=== PATIENT | female | born 1930 | race Caucasian/White ===

== ENCOUNTER 2017-12-10 16:25 | Emergency (ER) | payer MEDICARE ==
[~2017-12-10] VITALS: Ht 170.2 cm; Wt 71.7 kg
[~2017-12-10 16:25] MED LIST: AMLODIPINE BESYL5 MG PO; CLINDAMYCIN HC150 MG PO; INVOKANA PO; LANTUS100 UNITS/ SC
[2017-12-10] MEDS ORDERED: SODIUM CHLORIDE 0.9% 500ML 500 ML IV STA (16:35)
[2017-12-10] MEDS ORDERED: INSULIN REGULAR, HUMAN 100 UNIT/1 ML 3ML VIAL IV ONE (16:45)
[2017-12-10 17:44] LABS: BILIRUBIN,URINE NEGATIVE (NEGATIVE); CLARITY,URINE CLEAR (CLEAR); COLOR,URINE YELLOW (YELLOW); KETONES,URINE NEGATIVE (NEGATIVE); LEUKOCYTE ESTERASE ,URINE NEGATIVE (NEGATIVE); NITRITE,URINE NEGATIVE (NEGATIVE); PROTEIN,URINE DIPSTICK NEGATIVE (NEGATIVE); URINE UROBILINOGEN 0.2 mg/dL (0.2 - 1)
--- NOTE | 2017-12-10 17:44 | Diagnostic Imaging Report ---
PROCEDURE: A single AP view of the chest. COMPARISON: Patients [facility], , CHEST 2 VIEWS, 10/10/2009, 11:12. INDICATIONS: WEAKNESS FINDINGS: Lines/tubes: None. Lungs: The lungs are well inflated. Stable 6 mm calcified granuloma in the left upper lobe. There is no evidence of pneumonia or pulmonary edema. Pleura: There is no pleural effusion or pneumothorax. Heart and mediastinum: The heart and the mediastinum are unremarkable. Bones: No acute bony abnormality. IMPRESSION: 1. No acute cardiopulmonary abnormalities. Donte Boo M.D. Dictated by: Donte Boo M.D. on 12/10/2017 at 17:46 Electronically approved by: Donte Boo M.D. on 12/10/2017 at 17:46
[2017-12-10 17:57] LABS: MUCUS,URINE FEW (RARE); RBC,URINE 0-5 /HPF (0-5)
[2017-12-10] MEDS ORDERED: VICTOZA 2-0.6 MG/0.1 SQ (18:00)
[2017-12-10 18:30] LABS: ALANINE AMINOTRANSFERASE 12 IU/L (0-55); ALBUMIN 3.5 g/dL (3.5-5.0); ALBUMIN/GLOBULIN RATIO 0.9 (0.8-2.0); ALKALINE PHOSPHATASE 82 IU/L (40-150); ANION GAP 16.6 mmol/L (8-16); BLOOD UREA NITROGEN 15 mg/dL (7-26); BUN/CREATININE RATIO 16 (6-25); CARBON DIOXIDE 21 mmol/L (22-29); CHLORIDE 101 mmol/L (98-107); CREATINE KINASE 36 IU/L (29-168); CREATININE, SERUM 0.94 mg/dL (0.57-1.11); EST GLOMERULAR FILTRATION RATE 57 ML/MIN (60-); POTASSIUM 4.6 mmol/L (3.5-5.1); SODIUM 134 mmol/L (136-145)
[2017-12-10 18:32] LABS: GLUCOSE 479 mg/dL (74-118)
[2017-12-10 18:33] LABS: BASOPHILS % 0.6 % (0.0-1.0); EOSINOPHILS # (AUTO) 0.2 (0.0-0.4); EOSINOPHILS % 2.8 % (0.0-6.0); HEMATOCRIT 38.1 % (34.2-44.1); LYMPHOCYTES # (AUTO) 2.2 (1.0-3.2); LYMPHOCYTES % 40.1 % (18.0-39.1); MEAN CORPUSCULAR HEMOGLOBIN 30.3 pg (28-32); MEAN CORPUSCULAR HGB CONC 34.1 g/dL (31-35); MEAN CORPUSCULAR VOLUME 88.8 fL (81-99); MONOCYTES # (AUTO) 0.4 (0.2-0.8); MONOCYTES % 7.5 % (4.4-11.3); NEUTROPHILS # (AUTO) 2.6 (2.1-6.9); NEUTROPHILS % 48.8 % (38.7-80.0); PLATELET COUNT 184 x10e3/uL (140-360); RED BLOOD COUNT 4.29 x10e6/uL (3.6-5.1); RED CELL DISTRIBUTION WIDTH 13.2 % (11.7-14.4)
[2017-12-10 19:16] VITALS: BP 131/69
== END 2017-12-10 19:27 | disposition home or self-care (01) ==
LOC: ER 16:25
CPT/HCPCS: 36415; 71045; 80053; 81001; 82550; 82553; 82948; 84484; 85025; 87086; 93005; 99284; J7040

== ENCOUNTER 2018-06-10 12:02 | Emergency (ER) | payer MEDICARE ==
[~2018-06-10] VITALS: Ht 170.2 cm; Wt 71.7 kg
[~2018-06-10 12:02] MED LIST changes: +VICTOZA 2-0.6 MG/0.1 SQ
--- OUTSIDE RECORDS SUMMARY | 2018-06-10 12:05 | XMS REPORT | Continuity of Care Document ---
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 [facility] DM - Diabetes mellitus Active Problem 12/07/2016 [facility] Hiatal hernia Active Problem 12/07/2016 [facility] Cancer of bowel Resolved Problem 03/02/2013 [facility] COLON CANCER Resolved Problem 03/02/2013 [facility] DM - Diabetes mellitus Active Problem 03/02/2013 [facility] Hernia Resolved Problem 03/02/2013 [facility] Hiatal hernia Active Problem 03/02/2013 [facility] DIZZINESS AND GIDDINESS Active [facility] Medications Medication Details Route Status Patient Instructions Ordering Provider Order Date Source Saline Flush 0.9% 10 mL, Route: IVP, Drug Form: INJ, Dosing Weight 81.818, kg, PRN, PRN Line Flush, Start date: 12/04/16 18:23:00 CDT, Duration: 30 day, Stop date: 01/03/17 18:22:00 CDTNotes: (Same as: BD Posiflush) No Longer Active 12/04/2016 [facility] magnesium oxide 200 mg oral tablet 400 mg, 2 tab, PO, Daily, 8 tab, Substitution Allowed, TAB PO Active [facility] 02/28/2013 [facility] magnesium oxide 400 mg, 1 tab, Route: PO, Drug form: TAB, ONCE, Dosing Weight 81.818, kg, Start date: 02/28/13 15:49:00, Stop date: 02/28/13 15:49:00 PO No Longer Active [facility] 02/28/2013 [facility] Levemir FlexPen 100 unit, 1 mL, Route: SUB-Q, Drug form: INJ, Daily, Start date: 02/28/13 13:07:00, Duration: 30 day, Stop date: 03/30/13 9:00:00 SUB-Q No Longer Active [facility] 02/28/2013 [facility] Lantus Route: SUB-Q, Daily, Dosing Weight 81.818, kg, Start date: 02/28/13 12:00:00, Duration: 30 day, Stop date: 03/30/13 9:00:00 SUB-Q No Longer Active [facility] 02/28/2013 [facility] Insulin regular 10 unit, 0.1 mL, Route: IV, Drug form: INJ, ONCE, Dosing Weight 81.818, kg, Start date: 02/28/13 11:57:00, Stop date: 02/28/13 11:57:00 IV No Longer Active [facility] 02/28/2013 [facility] Dextrose 50% in Water IV 50 mL, Route: IVP, Start date: 02/28/13 11:39:00, Duration: 30 day, Stop date: 03/30/13 11:38:00, PRN Blood Glucose Results IVP No Longer Active [facility] 02/28/2013 [facility] NovoLog FlexPen 15 unit, 0.15 mL, Route: SUB-Q, Drug form: SOLN, Sliding Scale, PRN Blood Glucose Results, Start date: 02/28/13 11:39:00, Duration: 30 day, Stop date: 03/30/13 11:38:00 SUB-Q No Longer Active [facility] 02/28/2013 [facility] glucagon 1 mg, Route: IM, Drug form: PDR/INJ, PRN, PRN Blood Glucose Results, Start date: 02/28/13 11:39:00, Duration: 30 day, Stop date: 03/30/13 11:38:00 IM No Longer Active [facility] 02/28/2013 [facility] NovoLog FlexPen 6 unit, 0.06 mL, Route: SUB-Q, Drug form: SOLN, Sliding Scale, PRN Blood Glucose Results, Start date: 02/28/13 11:38:00, Duration: 30 day, Stop date: 03/30/13 11:37:00 SUB-Q No Longer Active [facility] 02/28/2013 [facility] insulin aspart Route: IV, ONCE, Dosing Weight 81.818, kg, Start date: 02/28/13 11:35:00, Stop date: 02/28/13 11:35:00 IV No Longer Active [facility] 02/28/2013 [facility] Cipro 500 mg oral tablet 500 mg, 1 tab, PO, Q12H, 14 tab, Substitution Allowed, TAB PO Active [place] 02/27/2013 [facility] ciprofloxacin 400 mg/200 mL intravenous solution 400 mg, 200 mL, Route: IVPB, Drug form: INJ, [id number], Dosing Weight 81.818, kg, Start date: 02/27/13 15:00:00, Duration: 30 day, Stop date: 03/29/13 3:00:00 IVPB No Longer Active [place] 02/27/2013 [facility] K-Dur 20 40 mEq, 2 tab, Route: PO, Drug form: ERTAB, ONCE, Start date: 02/27/13 11:00:00, Stop date: 02/27/13 11:00:00 PO No Longer Active [facility] 02/27/2013 [facility] glyBURIDE 5 mg, 1 tab, Route: PO, Drug form: TAB, BID, Dosing Weight 81.818, kg, Start date: 02/27/13 9:00:00, Duration: 30 day, Stop date: 03/28/13 17:00:00 PO No Longer Active [place] 02/27/2013 [facility] magnesium sulfate 1 gm, 50 mL, Route: IVPB, Drug form: INJ, ONCE, Dosing Weight 81.818, kg, Start date: 02/27/13 1:21:00, Stop date: 02/27/13 1:21:00 IVPB No Longer Active [place] 02/27/2013 [facility] nitroglycerin 0.4 mg sublingual tablet 0.4 mg, 1 tab, Route: SL, Drug form: TAB, Q5Min, PRN Chest Pain, Start date: 02/27/13 1:06:00, Duration: 30 day, Stop date: 03/29/13 1:05:00 SL No Longer Active [facility] 02/27/2013 [facility] atropine 0.5 mg, 5 mL, Route: IVP, Drug form: INJ, PRN, PRN Bradycardia, Start date: 02/27/13 1:06:00, Duration: 30 day, Stop date: 03/29/13 1:05:00 IVP No Longer Active [facility] 02/27/2013 [facility] insulin aspart 1 unit, 0.01 mL, Route: SUB-Q, Drug form: SOLN, Bedtime, Dosing Weight 81.818, kg, PRN Blood Glucose Results, Start date: 02/27/13 0:56:00, Duration: 30 day, Stop date: 03/29/13 0:55:00 SUB-Q No Longer Active [facility] 02/27/2013 [facility] Dextrose 50% Syringe 25 gm, 50 mL, Route: IVP, Drug Form: INJ, Dosing Weight 81.818, kg, PRN, PRN Blood Glucose Results, Start date: 02/27/13 0:56:00, Duration: 30 day, Stop date: 03/29/13 0:55:00 IVP No Longer Active [facility] 02/27/2013 [facility] glucagon 1 mg, Route: IM, Drug form: PDR/INJ, PRN, Dosing Weight 81.818, kg, PRN Blood Glucose Results, Start date: 02/27/13 0:56:00, Duration: 30 day, Stop date: 03/29/13 0:55:00 IM No Longer Active [facility] 02/27/2013 [facility] docusate 100 mg, 1 cap, Route: PO, Drug form: CAP, BID, Dosing Weight 81.818, kg, PRN Constipation, Start date: 02/27/13 0:55:00, Duration: 30 day, Stop date: 03/29/13 0:54:00 PO No Longer Active [facility] 02/27/2013 [facility] ondansetron 4 mg, 2 mL, Route: IVP, Drug form: INJ, Q8H, Dosing Weight 81.818, kg, PRN Nausea & Vomiting, Start date: 02/27/13 0:55:00, Duration: 30 day, Stop date: 03/29/13 0:54:00 IVP No Longer Active [facility] 02/27/2013 [facility] Saline Flush 0.9% 5 ml, Route: IVP, Drug Form: INJ, Dosing Weight 81.818, kg, PRN, PRN Line Flush, Start date: 02/27/13 0:55:00, Duration: 30 day, Stop date: 03/29/13 0:54:00 IVP No Longer Active [facility] 02/27/2013 [facility] acetaminophen 650 mg, 20.3 mL, Route: PO, Drug form: LIQ, Q4H, Dosing Weight 81.818, kg, PRN Pain 1-3/Temp > 100.4 F, Start date: 02/27/13 0:55:00, Duration: 30 day, Stop date: 03/29/13 0:54:00 PO No Longer Active [facility] 02/27/2013 [facility] Sodium Chloride 0.45% IV 1,000 mL 1,000 mL, Rate: 100 ml/hr, Infuse over: 10 hr, Route: IV, Dosing Weight 81.818 kg, Total Volume: 1,000, Start date: 02/27/13 0:55:00, Duration: 30 day, Stop date: 03/29/13 0:54:00 IV No Longer Active [facility] 02/27/2013 [facility] glyBURIDE 5 mg oral tablet 5 mg, 1 tab, PO, BID, Substitution Allowed PO Active [facility] 02/27/2013 [facility] Lantus 100 units/mL 100 units, SUB-Q, Daily, Substitution Allowed SUB-Q Active 02/27/2013 [facility] Rocephin + Sodium Chloride 0.9% IV 100 mL 1 gm, Route: IV, ONCE, Dosing Weight 81.818, kg, Start date: 02/26/13 22:38:00, Stop date: 02/26/13 22:38:00 IV No Longer Active [facility] 02/27/2013 [facility] Insulin regular 10 unit, Route: SUB-Q, ONCE, Dosing Weight 81.818, kg, Priority: STAT, Start date: 02/26/13 21:38:00, Stop date: 02/26/13 21:38:00 SUB-Q No Longer Active [facility] 02/27/2013 [facility] Sodium Chloride 0.9% (Bolus) IV 500 mL 500 mL, Rate: 500 ml/hr, Infuse over: 1 hr, Route: IV, Dosing Weight 81.818 kg, Total Volume: 500, Priority: STAT, Start date: 02/26/13 19:39:00, Duration: 1 doses or times, Stop date: 02/26/13 20:38:00 IV No Longer Active [facility] 02/27/2013 [facility] Saline Flush 0.9% 5 ml, Route: IVP, Drug Form: INJ, Dosing Weight 81.818, kg, PRN, PRN Line Flush, Start date: 02/26/13 19:39:00, Duration: 30 day, Stop date: 03/28/13 19:38:00 IVP No Longer Active [place] 02/27/2013 [facility] Allergies, Adverse Reactions, Alerts Substance Category Reaction Severity Reaction type Status Date Reported Comments Source codeine drug allergy Allergy Active [facility] Immunizations Immunization Date Given Site Status Last Updated Comments Source Hx pneumococcal vaccine<sup>1</sup> 02/27/2013 completed [facility] Admin Note: [facility] Hx pneumococcal vaccine<sup>1</sup> 02/27/2013 [facility] Results Order Name Results Value Reference Range Date Interpretation Comments Source BEDSIDE GLUCOSE TESTING Comment1 Notify RN/ 02/28/2013 NA [facility] BEDSIDE GLUCOSE TESTING Gluc POC [place] 269 mg/dL 70 - 99 02/28/2013 [facility] 1Interpretive Data: Upper Reportable Limit: 200 mg/dL. [facility] BEDSIDE GLUCOSE TESTING Gluc POC Lif[place]n 262 mg/dL 70 - 99 02/28/2013 [facility] 2Interpretive Data: Upper Reportable Limit: 200 mg/dL. [facility] BEDSIDE GLUCOSE TESTING Comment1 Notify RN/ 02/28/2013 NA [facility] BEDSIDE GLUCOSE TESTING Comment1 Notify RN/ 02/28/2013 NA [facility] BEDSIDE GLUCOSE TESTING Gluc POC [place] 300 mg/dL 70 - 99 02/28/2013 [facility] 3Interpretive Data: Upper Reportable Limit: 200 mg/dL. [facility] CHEMISTRY eGFR 82 mL/min/1.73m2 02/28/2013 NA 4Result Comment: The eGFR is calculated using the CKD-EPI formula. In most young, healthy individuals the eGFR will be >90 mL/min/1.73m2. The eGFR declines with age. An eGFR of 60-89 may be normal in some populations, particularly the elderly, for whom the CKD-EPI formula has not been extensively validated. Use of the eGFR is not recommended in the following populations: Individuals with unstable creatinine concentrations, including patients and those with serious co-morbid conditions. Patients with extremes in muscle mass or diet. The data above are obtained from the National Kidney Disease Education Program (NKDEP) which additionally recommends that when the eGFR is used in patients with extremes of body mass index for purposes of drug dosing, the eGFR should be multiplied by the estimated BMI. [facility] CHEMISTRY Glucose Lvl 284 mg/dL 70 - 99 02/28/2013 [place] 7Interpretive Data: Adult reference range values reflect the clinical guidelines of the [place] [employer]. [facility] CHEMISTRY Creatinine Lvl 0.7 mg/dL 0.5 - 1.4 02/28/2013 Normal [facility] CHEMISTRY CO2 26 meq/L 24 - 32 02/28/2013 Normal [facility] CHEMISTRY Calcium Lvl 8.2 mg/dL 8.5 - 10.5 02/28/2013 LOW [facility] CHEMISTRY BUN 12 mg/dL 7 - 22 02/28/2013 Normal [facility] CHEMISTRY Potassium Lvl 3.8 meq/L 3.5 - 5.1 02/28/2013 Normal [facility] CHEMISTRY Chloride Lvl 107 meq/L 95 - 109 02/28/2013 Normal [facility] CHEMISTRY Sodium Lvl 140 meq/L 135 - 145 02/28/2013 Normal [facility] CHEMISTRY AGAP 10.8 meq/L 10.0 - 20.0 02/28/2013 Normal [facility] CHEMISTRY Magnesium Lvl 1.6 mg/dL 1.8 - 2.4 02/28/2013 LOW [facility] CHEMISTRY Bili Indirect 0.3 mg/dL 0.0 - 1.0 02/28/2013 Normal [facility] CHEMISTRY A/G Ratio 0.8 0.7 - 1.6 02/28/2013 Normal [facility] CHEMISTRY Globulin 3.0 g/dL 2.0 - 4.0 02/28/2013 Normal [facility] CHEMISTRY Bili Total 0.5 mg/dL 0.2 - 1.3 02/28/2013 Normal [facility] CHEMISTRY Total Protein 5.4 g/dL 6.4 - 8.4 02/28/2013 LOW [facility] CHEMISTRY Albumin Lvl 2.4 g/dL 3.5 - 5.0 02/28/2013 LOW [facility] CHEMISTRY Alk Phos 152 unit/L 39 - 136 02/28/2013 HI [facility] CHEMISTRY ALT 127 unit/L 0 - 65 02/28/2013 HI [facility] CHEMISTRY Bili Direct 0.2 mg/dL 0.0 - 0.3 02/28/2013 Normal [facility] CHEMISTRY AST 112 unit/L 0 - 37 02/28/2013 [facility] HEMATOLOGY RDW 13.8 % 11.5 - 14.5 02/28/2013 Normal [facility] HEMATOLOGY MCHC 33.7 g/dL 32.0 - 36.0 02/28/2013 Normal [facility] HEMATOLOGY MPV 9.7 fL 7.4 - 10.4 02/28/2013 [facility] HEMATOLOGY Platelet 86 K/CMM 133 - 450 02/28/2013 [facility] MCH 30.1 pg 27.0 - 31.0 02/28/2013 [facility] HEMATOLOGY MCV 89.1 fL 81.0 - 99.0 02/28/2013 [facility] HEMATOLOGY RBC 4.01 M/CMM 4.20 - 5.40 02/28/2013 [facility] HEMATOLOGY Hct 35.7 % 36.0 - 48.0 02/28/2013 [facility] Hgb 12.1 g/dL 12.0 - 16.0 02/28/2013 [facility] HEMATOLOGY WBC 2.8 K/CMM 3.7 - 10.4 02/28/2013 [facility] Basophils # 0.0 K/CMM 0.0 - 0.2 02/28/2013 [facility] Segs-Bands # 1.0 K/CMM 1.5 - 8.1 02/28/2013 [facility] Lymphocytes # 1.3 K/CMM 1.0 - 5.5 02/28/2013 [facility] Monocytes # 0.4 K/CMM 0.0 - 0.8 02/28/2013 [facility] HEMATOLOGY Eosinophils # 0.1 K/CMM 0.0 - 0.5 02/28/2013 [facility] Monocytes 12.8 % 2.0 - 12.0 02/28/2013 [facility] Eosinophils 3.7 % 0.0 - 4.0 02/28/2013 [facility] HEMATOLOGY Basophils 0.3 % 0.0 - 1.0 02/28/2013 [facility] HEMATOLOGY Segs 37.4 % 45.0 - 75.0 02/28/2013 [facility] Lymphocytes 45.8 % 20.0 - 40.0 02/28/2013 [facility] Abdomen RUQ US Abdomen RUQ US Right upper quadrant abdominal ultrasound: Exam reason: to check liver (elevated enzymes)Abnormal Lab tests- LFT The pancreas head has a normal sonographic appearance; the body and tail are obscured. Diffuse increased echogenicity at the liver is noted compatible with fatty infiltration of the liver; however, cirrhosis or chronic hepatitis could have this appearance. The gallbladder is surgically absent by history.Common duct caliber is 7.6 mm which is normal. No intrahepatic duct dilatation is noted. the right kidney has a normal sonographic appearance. The right kidney measures 12.1 x 4.8 x 4.9 cm. IMPRESSION: 1. Status post cholecystectomy. 2. Diffuse increased echogenicity at the liver is noted compatible with fatty infiltration of the liver; however, cirrhosis or chronic hepatitis could have this appearance. SL:14 02/27/2013 - - Read by: Julián Watts Dictated Date/time: 02/27/13 16:09 Electronically Signed by: Julián Watts MD 02/27/13 16:10 FINAL REPORT [facility] CHEMISTRY Bili Total 0.6 mg/dL 0.2 - 1.3 02/27/2013 Normal [facility] CHEMISTRY AST 148 unit/L 0 - 37 02/27/2013 [facility] CHEMISTRY Albumin Lvl 2.5 g/dL 3.5 - 5.0 02/27/2013 LOW [facility] CHEMISTRY Alk Phos 159 unit/L 39 - 136 02/27/2013 [facility] CHEMISTRY ALT 152 unit/L 0 - 65 02/27/2013 [facility] CHEMISTRY Globulin 3.3 g/dL 2.0 - 4.0 02/27/2013 Normal [facility] CHEMISTRY A/G Ratio 0.8 0.7 - 1.6 02/27/2013 Normal [facility] CHEMISTRY Creatinine Lvl 0.7 mg/dL 0.5 - 1.4 02/27/2013 Normal [facility] CHEMISTRY Total Protein 5.8 g/dL 6.4 - 8.4 02/27/2013 LOW [facility] CHEMISTRY B/C Ratio 29 6 - 25 02/27/2013 [facility] CHEMISTRY CO2 25 meq/L 24 - 32 02/27/2013 Normal [facility] CHEMISTRY Calcium Lvl 8.9 mg/dL 8.5 - 10.5 02/27/2013 Normal [facility] CHEMISTRY AGAP 14.3 meq/L 10.0 - 20.0 02/27/2013 Normal [facility] CHEMISTRY eGFR 82 mL/min/1.73m2 02/27/2013 NA 5Result Comment: The eGFR is calculated using the CKD-EPI formula. In most young, healthy individuals the eGFR will be >90 mL/min/1.73m2. The eGFR declines with age. An eGFR of 60-89 may be normal in some populations, particularly the elderly, for whom the CKD-EPI formula has not been extensively validated. Use of the eGFR is not recommended in the following populations: Individuals with unstable creatinine concentrations, including patients and those with serious co-morbid conditions. Patients with extremes in muscle mass or diet. The data above are obtained from the National Kidney Disease Education Program (NKDEP) which additionally recommends that when the eGFR is used in patients with extremes of body mass index for purposes of drug dosing, the eGFR should be multiplied by the estimated BMI. [facility] CHEMISTRY Glucose Lvl 267 mg/dL 70 - 99 02/27/2013 [place] 8Interpretive Data: Adult reference range values reflect the clinical guidelines of the [place] [employer]. [facility] CHEMISTRY BUN 20 mg/dL 7 - 22 02/27/2013 Normal [facility] CHEMISTRY Chloride Lvl 102 meq/L 95 - 109 02/27/2013 Normal [facility] CHEMISTRY Potassium Lvl 3.3 meq/L 3.5 - 5.1 02/27/2013 LOW [facility] CHEMISTRY Sodium Lvl 138 meq/L 135 - 145 02/27/2013 Normal [facility] HEMATOLOGY Segs 42.8 % 45.0 - 75.0 02/27/2013 [facility] HEMATOLOGY Monocytes 13.4 % 2.0 - 12.0 02/27/2013 [facility] HEMATOLOGY Lymphocytes 41.7 % 20.0 - 40.0 02/27/2013 [facility] HEMATOLOGY Basophils 0.4 % 0.0 - 1.0 02/27/2013 [facility] HEMATOLOGY Eosinophils 1.7 % 0.0 - 4.0 02/27/2013 Normal [facility] HEMATOLOGY Lymphocytes # 1.1 K/CMM 1.0 - 5.5 02/27/2013 Normal [facility] HEMATOLOGY Segs-Bands # 1.2 K/CMM 1.5 - 8.1 02/27/2013 [facility] HEMATOLOGY Monocytes # 0.4 K/CMM 0.0 - 0.8 02/27/2013 Normal [facility] HEMATOLOGY Basophils # 0.0 K/CMM 0.0 - 0.2 02/27/2013 [facility] HEMATOLOGY Eosinophils # 0.0 K/CMM 0.0 - 0.5 02/27/2013 Normal [facility] HEMATOLOGY Platelet 71 K/CMM 133 - 450 02/27/2013 [facility] HEMATOLOGY RDW 13.8 % 11.5 - 14.5 02/27/2013 Normal [facility] HEMATOLOGY MPV 9.6 fL 7.4 - 10.4 02/27/2013 Normal [facility] HEMATOLOGY WBC 2.7 K/CMM 3.7 - 10.4 02/27/2013 LOW [facility] HEMATOLOGY Hgb 12.9 g/dL 12.0 - 16.0 02/27/2013 Normal [facility] HEMATOLOGY RBC 4.29 M/CMM 4.20 - 5.40 02/27/2013 Normal [facility] HEMATOLOGY Hct 38.1 % 36.0 - 48.0 02/27/2013 Normal [facility] HEMATOLOGY MCV 88.8 fL 81.0 - 99.0 02/27/2013 Normal [facility] HEMATOLOGY MCHC 33.8 g/dL 32.0 - 36.0 02/27/2013 Normal [facility] HEMATOLOGY MCH 30.0 pg 27.0 - 31.0 02/27/2013 Normal [facility] Microbiology Culture: Blood 02/27/2013 [facility] Microbiology Culture: Blood 02/27/2013 [facility] CHEMISTRY Lactic Acid Lvl 1.7 mMol/L 0.5 - 2.2 02/27/2013 Normal [facility] CHEMISTRY Magnesium Lvl 1.2 mg/dL 1.8 - 2.4 02/27/2013 LOW [facility] HEMATOLOGY Hgb 13.9 g/dL 12.0 - 16.0 02/27/2013 Normal [facility] HEMATOLOGY Hct 41.7 % 36.0 - 48.0 02/27/2013 Normal [facility] HEMATOLOGY RBC 4.74 M/CMM 4.20 - 5.40 02/27/2013 Normal [facility] HEMATOLOGY RDW 13.9 % 11.5 - 14.5 02/27/2013 Normal [facility] HEMATOLOGY WBC 2.8 K/CMM 3.7 - 10.4 02/27/2013 LOW [facility] HEMATOLOGY MCH 29.4 pg 27.0 - 31.0 02/27/2013 Normal [facility] HEMATOLOGY MCHC 33.5 g/dL 32.0 - 36.0 02/27/2013 Normal [facility] HEMATOLOGY MCV 87.9 fL 81.0 - 99.0 02/27/2013 Normal [facility] HEMATOLOGY MPV 10.1 fL 7.4 - 10.4 02/27/2013 Normal [facility] HEMATOLOGY Platelet 83 K/CMM 133 - 450 02/27/2013 LOW [facility] HEMATOLOGY Lymphocytes # 0.9 K/CMM 1.0 - 5.5 02/27/2013 LOW [facility] HEMATOLOGY Basophils 0.1 % 0.0 - 1.0 02/27/2013 Normal [facility] HEMATOLOGY Segs-Bands # 1.5 K/CMM 1.5 - 8.1 02/27/2013 Normal [facility] HEMATOLOGY Basophils # 0.0 K/CMM 0.0 - 0.2 02/27/2013 Normal [facility] HEMATOLOGY Monocytes 14.4 % 2.0 - 12.0 02/27/2013 [place] [facility] HEMATOLOGY Lymphocytes 32.7 % 20.0 - 40.0 02/27/2013 Normal [facility] HEMATOLOGY Eosinophils 0.4 % 0.0 - 4.0 02/27/2013 Normal [facility] HEMATOLOGY Segs 52.4 % 45.0 - 75.0 02/27/2013 Normal [facility] HEMATOLOGY Eosinophils # 0.0 K/CMM 0.0 - 0.5 02/27/2013 Normal [facility] HEMATOLOGY Monocytes # 0.4 K/CMM 0.0 - 0.8 02/27/2013 Normal [facility] IMMUNOLOGY Hep C Ab Negative *NA* (02/26/2013 20:55:00) Negative 02/27/2013 [facility] IMMUNOLOGY Hep B Core IgM Negative *NA* (02/26/2013 20:55:00) Negative 02/27/2013 [facility] IMMUNOLOGY Hep Bs Ag Negative *NA* (02/26/2013 20:55:00) Negative 02/27/2013 [facility] IMMUNOLOGY Hep A IgM Negative *NA* (02/26/2013 20:55:00) Negative 02/27/2013 [facility] Microbiology Culture: Urine 02/27/2013 [facility] CHEMISTRY CK MB Index null 0.0 - 2.5 02/27/2013 Normal [facility] CHEMISTRY BNP 6 pg/mL <=100 02/27/2013 Normal 11Interpretive Data: Elevated results are in line with increasing severity of congestive heart failure. Minor elevations between 100 and 300 may be seen with Myocardial Ischemia, Sodium retaining drugs, and compensated/treated heart failure. [facility] CHEMISTRY Troponin-I null 0.00 - 0.40 02/27/2013 Normal [facility] CHEMISTRY CK MB null 0.5 - 3.6 02/27/2013 Normal [facility] CHEMISTRY Sodium Lvl 133 meq/L 135 - 145 02/27/2013 LOW [facility] CHEMISTRY Potassium Lvl 3.8 meq/L 3.5 - 5.1 02/27/2013 Normal [facility] CHEMISTRY Chloride Lvl 95 meq/L 95 - 109 02/27/2013 Normal [facility] CHEMISTRY Calcium Lvl 9.4 mg/dL 8.5 - 10.5 02/27/2013 Normal [facility] CHEMISTRY eGFR 60 mL/min/1.73m2 02/27/2013 NA 6Result Comment: The eGFR is calculated using the CKD-EPI formula. In most young, healthy individuals the eGFR will be >90 mL/min/1.73m2. The eGFR declines with age. An eGFR of 60-89 may be normal in some populations, particularly the elderly, for whom the CKD-EPI formula has not been extensively validated. Use of the eGFR is not recommended in the following populations: Individuals with unstable creatinine concentrations, including patients and those with serious co-morbid conditions. Patients with extremes in muscle mass or diet. The data above are obtained from the National Kidney Disease Education Program (NKDEP) which additionally recommends that when the eGFR is used in patients with extremes of body mass index for purposes of drug dosing, the eGFR should be multiplied by the estimated BMI. [facility] CHEMISTRY Albumin Lvl 2.9 g/dL 3.5 - 5.0 02/27/2013 LOW [facility] CHEMISTRY Globulin 3.9 g/dL 2.0 - 4.0 02/27/2013 Normal [facility] CHEMISTRY A/G Ratio 0.7 0.7 - 1.6 02/27/2013 Normal [facility] CHEMISTRY CO2 27 meq/L 24 - 32 02/27/2013 Normal [facility] CHEMISTRY AGAP 14.8 meq/L 10.0 - 20.0 02/27/2013 Normal [facility] CHEMISTRY B/C Ratio 30 6 - 25 02/27/2013 [facility] CHEMISTRY Total Protein 6.8 g/dL 6.4 - 8.4 02/27/2013 Normal [facility] CHEMISTRY Creatinine Lvl 0.9 mg/dL 0.5 - 1.4 02/27/2013 Normal [facility] CHEMISTRY Glucose Lvl 426 mg/dL 70 - 99 02/27/2013 CRIT 10Interpretive Data: Adult reference range values reflect the clinical guidelines of the [place] [employer]. [facility] CHEMISTRY BUN 27 mg/dL 7 - 22 02/27/2013 [facility] CHEMISTRY ALT 191 unit/L 0 - 65 02/27/2013 [facility] CHEMISTRY AST 202 unit/L 0 - 37 02/27/2013 [facility] CHEMISTRY Alk Phos 194 unit/L 39 - 136 02/27/2013 [facility] CHEMISTRY Bili Total 0.7 mg/dL 0.2 - 1.3 02/27/2013 [facility] CHEMISTRY Total CK 270 unit/L 12 - 191 02/27/2013 [facility] URINALYSIS UA Sq Epi Occasional /LPF *NA* (02/26/2013 20:13:00) Few 02/27/2013 NA [facility] URINALYSIS UA WBC 6 /HPF 0 - 5 02/27/2013 [facility] URINALYSIS UA Leuk Est Trace *ABN* (02/26/2013 20:13:00) Negative 02/27/2013 ABN [facility] URINALYSIS UA Bacteria Occasional /HPF *NA* (02/26/2013 20:13:00) None Seen 02/27/2013 [facility] URINALYSIS UA RBC 1 /HPF 0 - 2 02/27/2013 Normal [facility] URINALYSIS UA Mucus Few /LPF *NA* (02/26/2013 20:13:00) None Seen 02/27/2013 NA [facility] URINALYSIS UA Nitrite Negative (02/26/2013 20:13:00) Negative 02/27/2013 [facility] URINALYSIS UA Bili Negative *NA* (02/26/2013 20:13:00) Negative 02/27/2013 [facility] URINALYSIS UA Urobilinogen 2.0 mg/dL 0.1 - 1.0 02/27/2013 [facility] URINALYSIS UA Blood Small *ABN* (02/26/2013 20:13:00) Negative 02/27/2013 [facility] URINALYSIS UA Spec Grav 1.028 <=1.030 02/27/2013 Normal [facility] URINALYSIS UA pH 6.0 5.0 - 8.0 02/27/2013 Normal [facility] URINALYSIS UA Ketones Trace mg/dL *ABN* (02/26/2013 20:13:00) Negative 02/27/2013 [facility] URINALYSIS UA Turbidity Marked *ABN* (02/26/2013 20:13:00) Clear 02/27/2013 [facility] URINALYSIS UA Color Yellow *NA* (02/26/2013 20:13:00) Yellow 02/27/2013 [facility] URINALYSIS UA Glucose 500 mg/dL *ABN* (02/26/2013 20:13:00) Negative 02/27/2013 ABN [facility] URINALYSIS UA Protein Negative mg/dL (02/26/2013 20:13:00) Negative 02/27/2013 Normal [facility] Brain wo contrast CT Brain wo contrast CT CT head without contrast. CLINICAL INDICATION: Behavioral changes. Confusion. COMPARISON: [None]. TECHNIQUE: Multiple contiguous axial images of the brain were performed without IV contrast. FINDINGS: Mild diffuse cerebral and cerebellar atrophy and mild chronic small vessel ischemic change. Ventricles and subarachnoid spaces are appropriate for age. No acute territorial infarction or intracranial hemorrhage. No extra-axial fluid collection. Leach-white distinction is preserved. No mass, mass-effect, or midline shift. Atherosclerotic change of the cavernous segments of the internal carotid and distal vertebral arteries. Visualized paranasal sinuses are unremarkable. IMPRESSION: No acute intracranial process detected. SL: 02/26/2013 - - Read by: Robert Saucedo Dictated Date/time: 02/26/13 20:13 Electronically Signed by: Robert Saucedo MD 02/26/13 20:15 FINAL REPORT [facility] Chest 1view Chest 1view PROCEDURE: Chest 1view REASON FOR EXAM: See Clinic Indication CLINICAL INDICATION: Syncope COMPARISON: None. FINDINGS: No acute process. Mild lingular atelectasis or scarring. Small calcified granulomas present within the left upper lobe. No focal consolidation, pleural effusion, or pneumothorax. Normal cardiac silhouette and mediastinum. Multiple surgical clips are adjacent to the right lumbar spine region. SL: 02/26/2013 - - Read by: Robert Saucedo Dictated Date/time: 02/26/13 20:21 Electronically Signed by: Robert Saucedo MD 02/26/13 20:21 FINAL REPORT [facility] Vital Signs Vital Sign Value Date Comments Source BMI Calculated 23.54 12/04/2016 [facility] Weight 68.182 12/04/2016 [facility] Height 170.18 cm 12/04/2016 [facility] Respitory Rate 12/04/2016 [facility] Heart Rate 103 12/04/2016 [facility] Temperature Oral (F) 98.4 F 12/04/2016 [facility] Systolic (mm Hg) 110 12/04/2016 [facility] Diastolic (mm Hg) 74 12/04/2016 [facility] Systolic (mm Hg) 146 02/28/2013 [facility] Respitory Rate 17 02/28/2013 [facility] Temperature Oral (F) 98.1 F 02/28/2013 [facility] Heart Rate 85 02/28/2013 [facility] Diastolic (mm Hg) 72 02/28/2013 [facility] Respitory Rate 17 02/28/2013 [facility] Temperature Oral (F) 98.4 F 02/28/2013 [facility] Heart Rate 80 02/28/2013 [facility] Systolic (mm Hg) 144 02/28/2013 [facility] Diastolic (mm Hg) 72 02/28/2013 [facility] Respitory Rate 16 02/28/2013 [facility] Temperature Oral (F) 98.4 F 02/28/2013 [facility] Diastolic (mm Hg) 70 02/28/2013 [facility] Heart Rate 80 02/28/2013 [facility] Systolic (mm Hg) 154 02/28/2013 [facility] Weight 81.818 02/27/2013 [facility] Height 170.18 cm 02/27/2013 [facility] Height 170.18 cm 02/26/2013 [facility] Weight 81.818 02/26/2013 [facility] Encounters Location Location Details Encounter Type Encounter Number Reason For Visit Attending Provider ADM Date DC Date Status Source [facility] OU [id number] DIZZINESS, UTI ADNAN STANISLAW 02/26/2013 02/28/2013 Active [facility] Emergency [id number] Jose Franciscodennis Emmanuel 12/04/2016 12/05/2016 [facility] Procedures Procedure Code Date Perfomer Comments Source 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
--- OUTSIDE RECORDS SUMMARY | 2018-06-10 12:05 | XMS REPORT | CCD ---
Author Author Auto Generated Organization [facility] Address Unknown Phone Unavailable Care Team Providers Care Spot Sprayer Name Role Phone Anastasia Dover CP Allergies, Adverse Reactions, Alerts Substance Reaction Status codeine Active Problem List Condition Effective Dates Status Cancer of bowel Resolved COLON CANCER Resolved DM - Diabetes mellitus Active Hernia Resolved Hiatal hernia Active Medications Medication Instructions Start Date End Date Status insulin aspart Route: IV, ONCE, Dosing Weight 02/28/2013 02/28/2013 Discontinued 81.818, kg, Start date: 02/28/13 11:35:00, Stop date: 02/28/13 11:35:00 magnesium oxide 200 400 mg, 2 tab, PO, Daily, 8 tab, 02/28/2013 03/04/2013 Ordered mg oral tablet Substitution Allowed, TAB magnesium oxide 400 mg, 1 tab, Route: PO, Drug 02/28/2013 02/28/2013 Completed form: TAB, ONCE, Dosing Weight 81.818, kg, Start date: 02/28/13 15:49:00, Stop date: 02/28/13 15:49:00 Levemir FlexPen 100 unit, 1 mL, Route: SUB-Q, Drug 02/28/2013 02/28/2013 Discontinued form: INJ, Daily, Start date: 02/28/13 13:07:00, Duration: 30 day, Stop date: 03/30/13 9:00:00 Cipro 500 mg oral 500 mg, 1 tab, PO, Q12H, 14 tab, 02/27/2013 03/06/2013 Ordered tablet Substitution Allowed, TAB glyBURIDE 5 mg oral 5 mg, 1 tab, PO, BID, Substitution 02/27/2013 Ordered tablet Allowed K-Dur 20 40 mEq, 2 tab, Route: PO, Drug 02/27/2013 02/27/2013 Completed form: ERTAB, ONCE, Start date: 02/27/13 11:00:00, Stop date: 02/27/13 11:00:00 Sodium Chloride 0.9% 500 mL, Rate: 500 ml/hr, Infuse 02/26/2013 02/26/2013 Completed (Bolus) IV 500 mL over: 1 hr, Route: IV, Dosing Weight 81.818 kg, Total Volume: 500, Priority: STAT, Start date: 02/26/13 19:39:00, Duration: 1 doses or times, Stop date: 02/26/13 20:38:00 Saline Flush 0.9% 5 ml, Route: IVP, Drug Form: INJ, 02/26/2013 02/27/2013 Discontinued Dosing Weight 81.818, kg, PRN, PRN Line Flush, Start date: 02/26/13 19:39:00, Duration: 30 day, Stop date: 03/28/13 19:38:00 Lantus 100 units/mL 100 units, SUB-Q, Daily, 02/27/2013 Ordered Substitution Allowed Dextrose 50% in 50 mL, Route: IVP, Start date: 02/28/2013 02/28/2013 Discontinued Water IV 02/28/13 11:39:00, Duration: 30 day, Stop date: 03/30/13 11:38:00, PRN Blood Glucose Results NovoLog FlexPen 15 unit, 0.15 mL, Route: SUB-Q, 02/28/2013 02/28/2013 Discontinued Drug form: SOLN, Sliding Scale, PRN Blood Glucose Results, Start date: 02/28/13 11:39:00, Duration: 30 day, Stop date: 03/30/13 11:38:00 NovoLog FlexPen 18 unit, 0.18 mL, Route: SUB-Q, 02/28/2013 02/28/2013 Discontinued Drug form: SOLN, Sliding Scale, PRN Blood Glucose Results, Start date: 02/28/13 11:39:00, Duration: 30 day, Stop date: 03/30/13 11:38:00 glucagon 1 mg, Route: IM, Drug form: 02/28/2013 02/28/2013 Discontinued PDR/INJ, PRN, PRN Blood Glucose Results, Start date: 02/28/13 11:39:00, Duration: 30 day, Stop date: 03/30/13 11:38:00 NovoLog FlexPen 12 unit, 0.12 mL, Route: SUB-Q, 02/28/2013 02/28/2013 Discontinued Drug form: SOLN, Sliding Scale, PRN Blood Glucose Results, Start date: 02/28/13 11:39:00, Duration: 30 day, Stop date: 03/30/13 11:38:00 NovoLog FlexPen 9 unit, 0.09 mL, Route: SUB-Q, Drug 02/28/2013 02/28/2013 Discontinued form: SOLN, Sliding Scale, PRN Blood Glucose Results, Start date: 02/28/13 11:39:00, Duration: 30 day, Stop date: 03/30/13 11:38:00 NovoLog FlexPen 6 unit, 0.06 mL, Route: SUB-Q, Drug 02/28/2013 02/28/2013 Discontinued form: SOLN, Sliding Scale, PRN Blood Glucose Results, Start date: 02/28/13 11:38:00, Duration: 30 day, Stop date: 03/30/13 11:37:00 NovoLog FlexPen 3 unit, 0.03 mL, Route: SUB-Q, Drug 02/28/2013 02/28/2013 Discontinued form: SOLN, Sliding Scale, PRN Blood Glucose Results, Start date: 02/28/13 11:38:00, Duration: 30 day, Stop date: 03/30/13 11:37:00 nitroglycerin 0.4 mg 0.4 mg, 1 tab, Route: SL, Drug 02/27/2013 02/28/2013 Discontinued sublingual tablet form: TAB, Q5Min, PRN Chest Pain, Start date: 02/27/13 1:06:00, Duration: 30 day, Stop date: 03/29/13 1:05:00 atropine 0.5 mg, 5 mL, Route: IVP, Drug 02/27/2013 02/28/2013 Discontinued form: INJ, PRN, PRN Bradycardia, Start date: 02/27/13 1:06:00, Duration: 30 day, Stop date: 03/29/13 1:05:00 Insulin regular 10 unit, Route: SUB-Q, ONCE, Dosing 02/26/2013 02/26/2013 Completed Weight 81.818, kg, Priority: STAT, Start date: 02/26/13 21:38:00, Stop date: 02/26/13 21:38:00 Rocephin + Sodium 1 gm, Route: IV, ONCE, Dosing 02/26/2013 02/26/2013 Completed Chloride 0.9% IV 100 Weight 81.818, kg, Start date: mL 02/26/13 22:38:00, Stop date: 02/26/13 22:38:00 Insulin regular 10 unit, 0.1 mL, Route: IV, Drug 02/28/2013 02/28/2013 Completed form: INJ, ONCE, Dosing Weight 81.818, kg, Start date: 02/28/13 11:57:00, Stop date: 02/28/13 11:57:00 insulin aspart 1 unit, 0.01 mL, Route: SUB-Q, Drug 02/27/2013 02/28/2013 Discontinued form: SOLN, Bedtime, Dosing Weight 81.818, kg, PRN Blood Glucose Results, Start date: 02/27/13 0:56:00, Duration: 30 day, Stop date: 03/29/13 0:55:00 Dextrose 50% Syringe 25 gm, 50 mL, Route: IVP, Drug 02/27/2013 02/28/2013 Discontinued Form: INJ, Dosing Weight 81.818, kg, PRN, PRN Blood Glucose Results, Start date: 02/27/13 0:56:00, Duration: 30 day, Stop date: 03/29/13 0:55:00 glucagon 1 mg, Route: IM, Drug form: 02/27/2013 02/28/2013 Discontinued PDR/INJ, PRN, Dosing Weight 81.818, kg, PRN Blood Glucose Results, Start date: 02/27/13 0:56:00, Duration: 30 day, Stop date: 03/29/13 0:55:00 insulin aspart 2 unit, 0.02 mL, Route: SUB-Q, Drug 02/27/2013 02/28/2013 Discontinued form: SOLN, Bedtime, Dosing Weight 81.818, kg, PRN Blood Glucose Results, Start date: 02/27/13 0:56:00, Duration: 30 day, Stop date: 03/29/13 0:55:00 Dextrose 50% Syringe 12.5 gm, 25 mL, Route: IVP, Drug 02/27/2013 02/28/2013 Discontinued Form: INJ, Dosing Weight 81.818, kg, PRN, PRN Blood Glucose Results, Start date: 02/27/13 0:56:00, Duration: 30 day, Stop date: 03/29/13 0:55:00 insulin aspart 4 unit, 0.04 mL, Route: SUB-Q, Drug 02/27/2013 02/28/2013 Discontinued form: SOLN, TID-Before Meals, Dosing Weight 81.818, kg, PRN Blood Glucose Results, Start date: 02/27/13 0:56:00, Duration: 30 day, Stop date: 03/29/13 0:55:00 insulin aspart 1 unit, 0.01 mL, Route: SUB-Q, Drug 02/27/2013 02/28/2013 Discontinued form: SOLN, TID-Before Meals, Dosing Weight 81.818, kg, PRN Blood Glucose Results, Start date: 02/27/13 0:56:00, Duration: 30 day, Stop date: 03/29/13 0:55:00 insulin aspart 4 unit, 0.04 mL, Route: SUB-Q, Drug 02/27/2013 02/28/2013 Discontinued form: SOLN, Bedtime, Dosing Weight 81.818, kg, PRN Blood Glucose Results, Start date: 02/27/13 0:56:00, Duration: 30 day, Stop date: 03/29/13 0:55:00 insulin aspart 5 unit, 0.05 mL, Route: SUB-Q, Drug 02/27/2013 02/28/2013 Discontinued form: SOLN, TID-Before Meals, Dosing Weight 81.818, kg, PRN Blood Glucose Results, Start date: 02/27/13 0:56:00, Duration: 30 day, Stop date: 03/29/13 0:55:00 insulin aspart 2 unit, 0.02 mL, Route: SUB-Q, Drug 02/27/2013 02/28/2013 Discontinued form: SOLN, TID-Before Meals, Dosing Weight 81.818, kg, PRN Blood Glucose Results, Start date: 02/27/13 0:56:00, Duration: 30 day, Stop date: 03/29/13 0:55:00 insulin aspart 3 unit, 0.03 mL, Route: SUB-Q, Drug 02/27/2013 02/28/2013 Discontinued form: SOLN, TID-Before Meals, Dosing Weight 81.818, kg, PRN Blood Glucose Results, Start date: 02/27/13 0:56:00, Duration: 30 day, Stop date: 03/29/13 0:55:00 insulin aspart 3 unit, 0.03 mL, Route: SUB-Q, Drug 02/27/2013 02/28/2013 Discontinued form: SOLN, Bedtime, Dosing Weight 81.818, kg, PRN Blood Glucose Results, Start date: 02/27/13 0:56:00, Duration: 30 day, Stop date: 03/29/13 0:55:00 magnesium sulfate 1 gm, 50 mL, Route: IVPB, Drug 02/27/2013 02/27/2013 Completed form: INJ, ONCE, Dosing Weight 81.818, kg, Start date: 02/27/13 1:21:00, Stop date: 02/27/13 1:21:00 ciprofloxacin 400 400 mg, 200 mL, Route: IVPB, Drug 02/27/2013 02/28/2013 Discontinued mg/200 mL form: INJ, [id number], Dosing Weight intravenous solution 81.818, kg, Start date: 02/27/13 15:00:00, Duration: 30 day, Stop date: 03/29/13 3:00:00 Lantus Route: SUB-Q, Daily, Dosing Weight 02/28/2013 02/28/2013 Deleted 81.818, kg, Start date: 02/28/13 12:00:00, Duration: 30 day, Stop date: 03/30/13 9:00:00 docusate 100 mg, 1 cap, Route: PO, Drug 02/27/2013 02/28/2013 Discontinued form: CAP, BID, Dosing Weight 81.818, kg, PRN Constipation, Start date: 02/27/13 0:55:00, Duration: 30 day, Stop date: 03/29/13 0:54:00 ondansetron 4 mg, 2 mL, Route: IVP, Drug form: 02/27/2013 02/28/2013 Discontinued INJ, Q8H, Dosing Weight 81.818, kg, PRN Nausea & Vomiting, Start date: 02/27/13 0:55:00, Duration: 30 day, Stop date: 03/29/13 0:54:00 Saline Flush 0.9% 5 ml, Route: IVP, Drug Form: INJ, 02/27/2013 02/28/2013 Discontinued Dosing Weight 81.818, kg, PRN, PRN Line Flush, Start date: 02/27/13 0:55:00, Duration: 30 day, Stop date: 03/29/13 0:54:00 acetaminophen 650 mg, 20.3 mL, Route: PO, Drug 02/27/2013 02/28/2013 Discontinued form: LIQ, Q4H, Dosing Weight 81.818, kg, PRN Pain 1-3/Temp > 100.4 F, Start date: 02/27/13 0:55:00, Duration: 30 day, Stop date: 03/29/13 0:54:00 Sodium Chloride 1,000 mL, Rate: 100 ml/hr, Infuse 02/27/2013 02/28/2013 Discontinued 0.45% IV 1,000 mL over: 10 hr, Route: IV, Dosing Weight 81.818 kg, Total Volume: 1,000, Start date: 02/27/13 0:55:00, Duration: 30 day, Stop date: 03/29/13 0:54:00 glyBURIDE 5 mg, 1 tab, Route: PO, Drug form: 02/27/2013 02/28/2013 Discontinued TAB, BID, Dosing Weight 81.818, kg, Start date: 02/27/13 9:00:00, Duration: 30 day, Stop date: 03/28/13 17:00:00 Immunizations Vaccine Date Status Hx pneumococcal vaccine1 02/27/2013 Auth (Verified) [email or web address] Vital Signs Most recent to oldest [Reference Range]: 1 2 3 Height 170.18 cm (02/27/2013 01:16:00) 170.18 cm (02/26/2013 18:06:00) Temperature Oral [96.4-99.1 DegF] 98.1 DegF (02/28/2013 16:28:00) 98.4 DegF (02/28/2013 11:59:00) 98.4 DegF (02/28/2013 08:17:00) Systolic Blood Pressure [90-140 mmHg] 146 mmHg *HI* (02/28/2013 16:28:00) 144 mmHg *HI* (02/28/2013 11:59:00) 154 mmHg *HI* (02/28/2013 08:17:00) Diastolic Blood Pressure [60-90 mmHg] 72 mmHg (02/28/2013 16:28:00) 72 mmHg (02/28/2013 11:59:00) 70 mmHg (02/28/2013 08:17:00) Respiratory Rate [14-20 BRMIN] 17 BRMIN (02/28/2013 16:28:00) 17 BRMIN (02/28/2013 11:59:00) 16 BRMIN (02/28/2013 08:27:00) Peripheral Pulse Rate [60-100 bpm] 85 bpm (02/28/2013 16:28:00) 80 bpm (02/28/2013 11:59:00) 80 bpm (02/28/2013 08:17:00) Weight 81.818 kg (02/27/2013 01:16:00) 81.818 kg (02/26/2013 18:06:00) Results BEDSIDE GLUCOSE TESTING Most recent to oldest [Reference Range]: 1 2 3 Gluc POC Lifscn [70-99 mg/dL] 269 mg/dL 1 *HI* (02/28/2013 16:01:00) 262 mg/dL 2 *HI* (02/28/2013 14:41:00) 300 mg/dL 3 *HI* (02/28/2013 11:32:00) Comment1 Notify RN/MD *NA* (02/28/2013 16:01:00) Notify RN/MD *NA* (02/28/2013 14:41:00) Notify RN/MD *NA* (02/28/2013 11:32:00) 1Interpretive Data: Upper Reportable Limit: 200 mg/dL. 2Interpretive Data: Upper Reportable Limit: 200 mg/dL. 3Interpretive Data: Upper Reportable Limit: 200 mg/dL. URINALYSIS Most recent to oldest [Reference Range]: 1 2 3 UA Turbidity [Clear] Marked *ABN* (02/26/2013 20:13:00) UA Color [Yellow] Yellow *NA* (02/26/2013 20:13:00) UA pH [5.0-8.0] 6.0 (02/26/2013 20:13:00) UA Spec Grav [<=1.030] 1.028 (02/26/2013 20:13:00) UA Glucose [Negative mg/dL] 500 mg/dL *ABN* (02/26/2013 20:13:00) UA Blood [Negative] Small *ABN* (02/26/2013 20:13:00) UA Ketones [Negative mg/dL] Trace mg/dL *ABN* (02/26/2013 20:13:00) UA Protein [Negative mg/dL] Negative mg/dL (02/26/2013 20:13:00) UA Urobilinogen [0.1-1.0 mg/dL] 2.0 mg/dL *HI* (02/26/2013 20:13:00) UA Bili [Negative] Negative *NA* (02/26/2013 20:13:00) UA Leuk Est [Negative] Trace *ABN* (02/26/2013 20:13:00) UA Nitrite [Negative] Negative (02/26/2013 20:13:00) UA WBC [0-5 /HPF] 6 /HPF *HI* (02/26/2013 20:13:00) UA RBC [0-2 /HPF] 1 /HPF (02/26/2013 20:13:00) UA Bacteria [None Seen /HPF] Occasional /HPF *NA* (02/26/2013 20:13:00) UA Sq Epi [Few /LPF] Occasional /LPF *NA* (02/26/2013 20:13:00) UA Mucus [None Seen /LPF] Few /LPF *NA* (02/26/2013 20:13:00) CHEMISTRY Most recent to oldest [Reference Range]: 1 2 3 Sodium Lvl [135-145 mEq/L] 140 mEq/L (02/28/2013 06:29:00) 138 mEq/L (02/27/2013 06:22:00) 133 mEq/L *LOW* (02/26/2013 20:13:00) Potassium Lvl [3.5-5.1 mEq/L] 3.8 mEq/L (02/28/2013 06:29:00) 3.3 mEq/L *LOW* (02/27/2013 06:22:00) 3.8 mEq/L (02/26/2013 20:13:00) Chloride Lvl [95-109 mEq/L] 107 mEq/L (02/28/2013 06:29:00) 102 mEq/L (02/27/2013 06:22:00) 95 mEq/L (02/26/2013 20:13:00) CO2 [24-32 mEq/L] 26 mEq/L (02/28/2013 06:29:00) 25 mEq/L (02/27/2013 06:22:00) 27 mEq/L (02/26/2013 20:13:00) AGAP [10.0-20.0 mEq/L] 10.8 mEq/L (02/28/2013 06:29:00) 14.3 mEq/L (02/27/2013 06:22:00) 14.8 mEq/L (02/26/2013 20:13:00) Creatinine Lvl [0.5-1.4 mg/dL] 0.7 mg/dL (02/28/2013:29:00) 0.7 mg/dL (02/27/2013 06:22:00) 0.9 mg/dL (02/26/2013 20:13:00) eGFR 82 mL/min/1.73m2 4 *NA* (02/28/2013 06:29:00) 82 mL/min/1.73m2 5 *NA* (02/27/2013 06:22:00) 60 mL/min/1.73m2 6 *NA* (02/26/2013 20:13:00) BUN [7-22 mg/dL] 12 mg/dL (02/28/2013 06:29:00) 20 mg/dL (02/27/2013 06:22:00) 27 mg/dL *HI* (02/26/2013 20:13:00) B/C Ratio [6-25] 29 *HI* (02/27/2013 06:22:00) 30 *HI* (02/26/2013 20:13:00) Glucose Lvl [70-99 mg/dL] 284 mg/dL 7 *HI* (02/28/2013 06:29:00) 267 mg/dL 8 *HI* (02/27/2013 06:22:00) 426 mg/dL 9, 10 *CRIT* (02/26/2013 20:13:00) Total Protein [6.4-8.4 g/dL] 5.4 g/dL *LOW* (02/28/2013 06:29:00) 5.8 g/dL *LOW* (02/27/2013 06:22:00) 6.8 g/dL (02/26/2013 20:13:00) Albumin Lvl [3.5-5.0 g/dL] 2.4 g/dL *LOW* (02/28/2013 06:29:00) 2.5 g/dL *LOW* (02/27/2013 06:22:00) 2.9 g/dL *LOW* (02/26/2013 20:13:00) Globulin [2.0-4.0 g/dL] 3.0 g/dL (02/28/2013:29:00) 3.3 g/dL (02/27/2013 06:22:00) 3.9 g/dL (02/26/2013 20:13:00) A/G Ratio [0.7-1.6] 0.8 (02/28/2013:29:00) 0.8 (02/27/2013 06:22:00) 0.7 (02/26/2013 20:13:00) Calcium Lvl [8.5-10.5 mg/dL] 8.2 mg/dL *LOW* (02/28/2013:29:00) 8.9 mg/dL (02/27/2013 06:22:00) 9.4 mg/dL (02/26/2013 20:13:00) Magnesium Lvl [1.8-2.4 mg/dL] 1.6 mg/dL *LOW* (02/28/2013 06:29:00) 1.2 mg/dL *LOW* (02/26/2013 20:55:00) ALT [0-65 unit/L] 127 unit/L *HI* (02/28/2013 06:29:00) 152 unit/L *HI* (02/27/2013 06:22:00) 191 unit/L *HI* (02/26/2013 20:13:00) AST [0-37 unit/L] 112 unit/L *HI* (02/28/2013 06:29:00) 148 unit/L *HI* (02/27/2013 06:22:00) 202 unit/L *HI* (02/26/2013 20:13:00) Alk Phos [39-136 unit/L] 152 unit/L *HI* (02/28/2013 06:29:00) 159 unit/L *HI* (02/27/2013 06:22:00) 194 unit/L *HI* (02/26/2013 20:13:00) Bili Total [0.2-1.3 mg/dL] 0.5 mg/dL (02/28/2013 06:29:00) 0.6 mg/dL (02/27/2013 06:22:00) 0.7 mg/dL (02/26/2013:13:00) Bili Direct [0.0-0.3 mg/dL] 0.2 mg/dL (02/28/2013 06:29:00) Bili Indirect [0.0-1.0 mg/dL] 0.3 mg/dL (02/28/2013 06:29:00) Lactic Acid Lvl [0.5-2.2 mMol/L] 1.7 mMol/L (02/26/2013 22:38:00) Total CK [12-191 unit/L] 270 unit/L *HI* (02/26/2013 20:13:00) CK MB [0.5-3.6 ng/mL] <0.5 ng/mL (02/26/2013 20:13:00) CK MB Index [0.0-2.5] <0.2 (02/26/2013 20:13:00) Troponin-I [0.00-0.40 ng/mL] <0.02 ng/mL (02/26/2013 20:13:00) BNP [<=100 pg/mL] 6 pg/mL 11 (02/26/2013 20:13:00) 4Result Comment: The eGFR is calculated using [...] from the National Kid[employer] Disease Education Program ( NKDEP) which additionally recommends that when the eGFR is used in patients with extremes of body mass index for purposes of drug dosing, the eGFR should be mul tiplied by the estimated BMI. 5Result Comment: The eGFR is calculated using [...] from the National Kidney Disease Education Program ( NKDEP) which additionally recommends that when the eGFR is used in patients with extremes of body mass index for purposes of drug dosing, the eGFR should be mul tiplied by the estimated BMI. 6Result Comment: The eGFR is calculated using [...] from the National Kid[employer] Disease Education Program ( NKDEP) which additionally recommends that when the eGFR is used in patients with extremes of body mass index for purposes of drug dosing, the eGFR should be mul tiplied by the estimated BMI. 7Interpretive Data: Adult reference range values reflect the clinical guidelines of the [place] [employer]. 8Interpretive Data: Adult reference range values reflect the clinical guidelines of the [place] [employer]. 9Result Comment: Critical Result(s) called to [place]ia at 02/26/2013 21:02 by_sol. Read back OK. 10Interpretive Data: Adult reference range values reflect the clinical guidelines of the [place] [employer]. 11Interpretive Data: Elevated results are in line with increasing severity of congestive heart failure. Minor elevations between 100 and 300 may be seen with Myocardial Ischemia, Sodium retaining drugs, and compensated/treated heart failure. HEMATOLOGY Most recent to oldest [Reference Range]: 1 2 3 WBC [3.7-10.4 K/CMM] 2.8 K/CMM *LOW* (02/28/2013 06:29:00) 2.7 K/CMM *LOW* (02/27/2013 06:22:00) 2.8 K/CMM *LOW* (02/26/2013 20:55:00) RBC [4.20-5.40 M/CMM] 4.01 M/CMM *LOW* (02/28/2013 06:29:00) 4.29 M/CMM (02/27/2013 06:22:00) 4.74 M/CMM (02/26/2013 20:55:00) Hgb [12.0-16.0 g/dL] 12.1 g/dL (02/28/2013 06:29:00) 12.9 g/dL (02/27/2013 06:22:00) 13.9 g/dL (02/26/2013 20:55:00) Hct [36.0-48.0 %] 35.7 % *LOW* (02/28/2013 06:29:00) 38.1 % (02/27/2013 06:22:00) 41.7 % (02/26/2013 20:55:00) MCV [81.0-99.0 fL] 89.1 fL (02/28/2013 06:29:00) 88.8 fL (02/27/2013 06:22:00) 87.9 fL (02/26/2013 20:55:00) MCH [27.0-31.0 pg] 30.1 pg (02/28/2013 06:29:00) 30.0 pg (02/27/2013 06:22:00) 29.4 pg (02/26/2013 20:55:00) MCHC [32.0-36.0 g/dL] 33.7 g/dL (02/28/2013 06:29:00) 33.8 g/dL (02/27/2013 06:22:00) 33.5 g/dL (02/26/2013 20:55:00) RDW [11.5-14.5 %] 13.8 % (02/28/2013 06:29:00) 13.8 % (02/27/2013 06:22:00) 13.9 % (02/26/2013 20:55:00) Platelet [133-450 K/CMM] 86 K/CMM *LOW* (02/28/2013 06:29:00) 71 K/CMM *LOW* (02/27/2013 06:22:00) 83 K/CMM *LOW* (02/26/2013 20:55:00) MPV [7.4-10.4 fL] 9.7 fL (02/28/2013 06:29:00) 9.6 fL (02/27/2013 06:22:00) 10.1 fL (02/26/2013 20:55:00) Segs [45.0-75.0 %] 37.4 % *LOW* (02/28/2013 06:29:00) 42.8 % *LOW* (02/27/2013 06:22:00) 52.4 % (02/26/2013 20:55:00) Lymphocytes [20.0-40.0 %] 45.8 % *HI* (02/28/2013 06:29:00) 41.7 % *HI* (02/27/2013 06:22:00) 32.7 % (02/26/2013 20:55:00) Monocytes [2.0-12.0 %] 12.8 % *HI* (02/28/2013 06:29:00) 13.4 % *HI* (02/27/2013 06:22:00) 14.4 % *HI* (02/26/2013 20:55:00) Eosinophils [0.0-4.0 %] 3.7 % (02/28/2013 06:29:00) 1.7 % (02/27/2013 06:22:00) 0.4 % (02/26/2013 20:55:00) Basophils [0.0-1.0 %] 0.3 % (02/28/2013 06:29:00) 0.4 % (02/27/2013 06:22:00) 0.1 % (02/26/2013 20:55:00) Segs-Bands # [1.5-8.1 K/CMM] 1.0 K/CMM *LOW* (02/28/2013 06:29:00) 1.2 K/CMM *LOW* (02/27/2013 06:22:00) 1.5 K/CMM (02/26/2013 20:55:00) Lymphocytes # [1.0-5.5 K/CMM] 1.3 K/CMM (02/28/2013 06:29:00) 1.1 K/CMM (02/27/2013 06:22:00) 0.9 K/CMM *LOW* (02/26/2013 20:55:00) Monocytes # [0.0-0.8 K/CMM] 0.4 K/CMM (02/28/2013 06:29:00) 0.4 K/CMM (02/27/2013 06:22:00) 0.4 K/CMM (02/26/2013 20:55:00) Eosinophils # [0.0-0.5 K/CMM] 0.1 K/CMM (02/28/2013 06:29:00) 0.0 K/CMM (02/27/2013 06:22:00) 0.0 K/CMM (02/26/2013 20:55:00) Basophils # [0.0-0.2 K/CMM] 0.0 K/CMM (02/28/2013 06:29:00) 0.0 K/CMM (02/27/2013 06:22:00) 0.0 K/CMM (02/26/2013 20:55:00) IMMUNOLOGY Most recent to oldest [Reference Range]: 1 2 3 Hep Bs Ag [Negative] Negative *NA* (02/26/2013 20:55:00) Hep B Core IgM [Negative] Negative *NA* (02/26/2013 20:55:00) Hep A IgM [Negative] Negative *NA* (02/26/2013 20:55:00) Hep C Ab [Negative] Negative *NA* (02/26/2013 20:55:00) Microbiology Reports PROCEDURE:Culture: Blood STATUS: In Progress BODY SITE: Right Hand COLLECTED DATE/TIME: 02/26/2013 23:25:00 SOURCE: Blood FREE TEXT SOURCE: PRELIMINARY REPORTS Preliminary Report No Growth; Holding Preliminary Report No Growth At 3 Days Preliminary Report No Growth At 2 Days Preliminary Report No Growth At 1 Day PROCEDURE:Culture: Blood STATUS: In Progress BODY SITE: Left Hand COLLECTED DATE/TIME: 02/26/2013 23:02:00 SOURCE: Blood FREE TEXT SOURCE: PRELIMINARY REPORTS Preliminary Report No Growth; Holding Preliminary Report No Growth At 1 Day Preliminary Report No Growth At 3 Days Preliminary Report No Growth At 2 Days PROCEDURE:Culture: Urine STATUS: Auth (Verified) BODY SITE: COLLECTED DATE/TIME: 02/26/2013 20:30:00 SOURCE: Urine, Clean Catch FREE TEXT SOURCE: FINAL REPORTS Final Report 50,000 - 100,000 CFU/mL Escherichia coli . 10,000 - 50,000 CFU/mL Skin Hemalatha PRELIMINARY REPORTS Preliminary Report Culture In Progress Preliminary Report Holding For Better Growth Preliminary Report 50,000 - 100,000 CFU/mL Gram Negative Rods Identification And Sensitivity To Follow . 10,000 - 50,000 CFU/mL Skin Hemalatha SUSCEPTIBILITY REPORT EC Antibiotic INTERP. VDIL Amikacin S Ampicillin S Ampicillin/Sulbactam S Cefazolin S Cefepime S Ceftriaxone S Cefuroxime S ESBL Confirmation - Gentamicin S Levofloxacin S Meropenem S Nitrofurantoin S Piperacillin/Tazobactam S Tetracycline S Tobramycin S Trimethoprim/Sulfamethoxazole S Procedures Procedures Date Related Diagnosis Anastomosis of colon to rectum Colostomy Hernia repair
--- OUTSIDE RECORDS SUMMARY | 2018-06-10 12:06 | XMS REPORT | Summary of Care ---
Author Author [facility] Organization [facility] Address Unknown Phone Unavailable Encounter MARGARETH Alvarez(LEVI) [id number] Date(s): 12/04/16 - 12/04/16 [facility] [id number] [place] [address]- Discharge Disposition: Home or Self Care Attending Physician: Klarissa Benitez DO Vital Signs Most recent to 1 oldest [Reference Range]: Height 170.18 cm (12/04/16 6:21 PM) Temperature Oral 98.4 DegF [96.4-99.1 DegF] (12/04/16 6:21 PM) Blood Pressure 110/74 mmHg [90-140/60-90 mmHg] (12/04/16 6:21 PM) Respiratory Rate 17 BRMIN [14-20 BRMIN] (12/04/16 6:21 PM) Peripheral Pulse 103 bpm Rate [60-100 bpm] *HI* (12/04/16 6:21 PM) Weight 68.182 kg (12/04/16 6:21 PM) Body Mass Index 23.54 m2 (12/04/16 6:21 PM) Problem List Condition Effective Dates Status Health Status Informant 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) Hiatal Active hernia(Confirmed) Allergies, Adverse Reactions, Alerts Substance Reaction Severity Status codeine Active Medications Saline Flush 0.9% 10 mL, Route: IVP, Drug Form: INJ, Dosing Weight 81.818, kg, PRN, PRN Line Flush , Start date: 12/04/16 18:23:00 CDT, Duration: 30 day, Stop date: 01/03/17 18:22 :00 CDT Notes: (Same as: BD Posiflush) Start Date: 12/04/16 Stop Date: 12/05/16 Status: Discontinued Results No data available for this section Immunizations Given and Recorded Vaccine Date Status Refusal Reason Hx pneumococcal vaccine1 02/27/13 Given 1Admin Note: [facility] Procedures Procedure Date Related Diagnosis Body Site Anastomosis of colon to rectum Colostomy Hernia repair Social History Social History Type Response Assessment and Plan No data available for this section
--- OUTSIDE RECORDS SUMMARY | 2018-06-10 12:06 | XMS REPORT ---
Author Author [facility] [place] [facility] Address Unknown Phone Unavailable Care Team Providers Care Public Health Program Manager Name Role Phone VISHNUALKA Kelly MIRANDA Unavailable Unavailable Problems This patient has no known problems. Allergies, Adverse Reactions, Alerts This patient has no known allergies or adverse reactions. Medications This patient has no known medications. Results Test Description Test Time Test Comments Text Results Atomic Results Result Comments CHEST SINGLE (PORTABLE) [place] [address] Patient Name: KAY ODELL MR #: [id number] : 1930 Age/Sex: 87/F Req #: [id number] Adm Physician: Ordered by: POPEYE SHER LAYOUT INSPECTOR Report #: [id number] Location: ER Room/Bed: Procedure: [id number] DX/CHEST SINGLE (PORTABLE) Exam Date: 12/10/17 Exam Time: 1700 REPORT STATUS: Signed PROCEDURE: A single AP view of the chest. COMPARISON: [facility], DX, CHEST 2 VIEWS, 10/10/2009, 11:12. INDICATIONS: WEAKNESS FINDINGS: Lines/tubes: None. Lungs: The lungs are well inflated. Stable 6 mm calcified granuloma in the left upper lobe. There is no evidence of pneumonia or pulmonary edema. Pleura: There is no pleural effusion or pneumothorax. Heart and mediastinum: The heart and the mediastinum are unremarkable. Bones: No acute bony abnormality. IMPRESSION: 1. No acute cardiopulmonary abnormalities. Memo Boo M.D. Dictated by: Memo Boo M.D. on 12/10/2017 at 17:46 Electronically approved by: Memo Boo M.D. on 12/10/2017 at 17:46 Dictated By: MEMO BOO MD 47 Transcribed By: ADRIANA on 12/10/171745 COPY TO: POPEYE SHER NP
--- NOTE | 2018-06-10 13:42 | Diagnostic Imaging Report ---
Exam: Abdominal series of radiographs with PA chest radiograph History: Low back pain. Abdominal pain. Findings: No consolidated pneumonia, pleural effusion or pneumothorax. Likely calcified granuloma in the left upper lung. No free air under the diaphragm. Nonobstructive bowel gas pattern with moderate retained feces in the colon likely due to constipation. Suture material and surgical clips over the pelvis. Surgical clips over the right upper abdomen. No suspicious calcifications. Apparent colostomy over the left lower abdomen/pelvis Impression: Findings likely due to constipation. Signed by: Dr. Rickie Castaneda M.D. on 06/10/2018 1:39 PM
[2018-06-10 14:55] LABS: BILIRUBIN,URINE NEGATIVE (NEGATIVE); CLARITY,URINE SL CLOUDY (CLEAR); COLOR,URINE YELLOW (YELLOW); KETONES,URINE NEGATIVE (NEGATIVE); LEUKOCYTE ESTERASE ,URINE TRACE (NEGATIVE); NITRITE,URINE POSITIVE (NEGATIVE); PROTEIN,URINE DIPSTICK NEGATIVE (NEGATIVE); URINE UROBILINOGEN 0.2 mg/dL (0.2 - 1)
[2018-06-10 14:59] LABS: BASOPHILS % 0.5 % (0.0-1.0); EOSINOPHILS # (AUTO) 0.1 (0.0-0.4); EOSINOPHILS % 1.1 % (0.0-6.0); HEMATOCRIT 43.6 % (34.2-44.1); HEMOGLOBIN 14.4 g/dL (12.0-16.0); LYMPHOCYTES # (AUTO) 1.8 (1.0-3.2); LYMPHOCYTES % 27.1 % (18.0-39.1); MEAN CORPUSCULAR HEMOGLOBIN 29.8 pg (28-32); MEAN CORPUSCULAR VOLUME 90.1 fL (81-99); MONOCYTES # (AUTO) 0.5 (0.2-0.8); MONOCYTES % 7.4 % (4.4-11.3); NEUTROPHILS # (AUTO) 4.2 (2.1-6.9); NEUTROPHILS % 63.6 % (38.7-80.0); PLATELET COUNT 284 x10e3/uL (140-360); RED BLOOD COUNT 4.84 x10e6/uL (3.6-5.1); RED CELL DISTRIBUTION WIDTH 13.7 % (11.7-14.4)
[2018-06-10 15:06] LABS: BACTERIA,URINE MANY /HPF
[2018-06-10 15:09] LABS: ALANINE AMINOTRANSFERASE 13 IU/L (0-55); ALBUMIN 4.1 g/dL (3.5-5.0); ALBUMIN/GLOBULIN RATIO 1.1 (0.8-2.0); ALKALINE PHOSPHATASE 70 IU/L (40-150); ANION GAP 14.9 mmol/L (8-16); BLOOD UREA NITROGEN 14 mg/dL (7-26); BUN/CREATININE RATIO 19 (6-25); CARBON DIOXIDE 26 mmol/L (22-29); CHLORIDE 102 mmol/L (98-107); CREATININE, SERUM 0.75 mg/dL (0.57-1.11); EST GLOMERULAR FILTRATION RATE > 60 ML/MIN (60-); GLUCOSE 119 mg/dL (74-118); POTASSIUM 3.9 mmol/L (3.5-5.1); SODIUM 139 mmol/L (136-145)
[2018-06-10] MEDS ORDERED: LACTULOSE SYRUP 20 GM/30 ML UDC PO ONE (16:15)
[2018-06-10] MEDS ORDERED: CEFTRIAXONE SOD 1 GM VIAL IV ONE (16:15)
== END 2018-06-10 19:20 | disposition home or self-care (01) ==
LOC: ER 12:02
DX: R10.12 Left upper quadrant pain (principal); R10.32 Left lower quadrant pain; N30.90 Cystitis, unspecified without hematuria; F17.210 Nicotine dependence, cigarettes, uncomplicated
CPT/HCPCS: 36415; 74022; 80053; 81001; 85025; 99284; J0696